=== PATIENT | female | born 1955 | race Caucasian/White ===

== ENCOUNTER 2020-03-09 08:25 | Outpatient (REF) | payer OTHER, SELFPAY ==
[2020-03-09 08:46] LABS: COVID-19 Test Negative (Negative)
== END 2020-03-09 08:26 | disposition home or self-care (01) ==
LOC: HO.EMPCOV 08:25
PROVIDERS: PCP Pediatrics; Visit Provider Internal Medicine
DX: Z20.828 Contact with and (suspected) exposure to other viral communicable diseases (principal)
CPT/HCPCS: 87635; C9803

== ENCOUNTER 2020-04-07 07:09 | Outpatient (REF) | payer OTHER, SELFPAY ==
[2020-04-07 07:27] LABS: COVID-19 Test Negative (Negative)
== END 2020-04-07 07:10 | disposition home or self-care (01) ==
LOC: HO.EMPCOV 07:09
PROVIDERS: Visit Provider Internal Medicine
DX: Z20.822 Contact with and (suspected) exposure to COVID-19 (principal)
CPT/HCPCS: 36415; 87635; C9803